=== PATIENT | male | born 1990 | race African-American/Black ===

== ENCOUNTER 2023-05-17 13:53 | Emergency (ER) | payer MEDICAID ==
[~2023-05-17] VITALS: Ht 162.6 cm; Wt 55.0 kg
[2023-05-17 13:59] VITALS: PULSE 72; RESP 16
[2023-05-17 14:01] VITALS: BP 143/82; TEMP 98.2; O2SAT 98
[2023-05-17] MEDS ORDERED: KETOROLAC 30MG/ML VIAL IM ONE (14:15)
[2023-05-17] MEDS ORDERED: KETOROLAC 30MG/ML VIAL IM NR (14:15)
[2023-05-17] MEDS ORDERED: NAPR275T96 MT (15:03)
== END 2023-05-17 17:53 | disposition home or self-care (01) ==
LOC: ER 14:09
DX: M79.644 Pain in right finger(s) (principal)
CPT/HCPCS: 99283; 73110; 29125; 96372; J1885